=== PATIENT | male | born 1955 | race Caucasian/White ===

== ENCOUNTER 2017-05-29 10:12 | Emergency (ER) | payer OTHER ==
[2017-05-29 11:35] VITALS: BP 164/87
[2017-05-29 12:18] LABS: Eosinophils % (Auto) 6.6 % (0.0-4.3); Hematocrit 33.3 % (35.5-45.6); Hemoglobin 11.4 gm/dl (11.8-15.2); Mean Corpuscular HGB Conc 34 % (32-34); Mean Corpuscular Hemoglobin 28 pg (28-32); Mean Corpuscular Volume 83 fl (84-94); Platelet Count 182 K/mm3 (140-440); Red Blood Count 4.03 M/mm3 (3.65-5.03); Red Cell Distribution Width 14.8 % (13.2-15.2); White Blood Count 6.4 K/mm3 (4.5-11.0)
[2017-05-29 12:26] LABS: BUN/Creatinine Ratio 14.37; Calcium 7.3 mg/dL (8.4-10.2); Chloride 106.7 mmol/L (98-107); Potassium 4.3 mmol/L (3.6-5.0)
--- NOTE | 2017-05-29 13:18 | Emergency Department Report ---
ED General Adult HPI - General Chief complaint: High BP Stated complaint: HIGH BLOOD PRESSURE Time Seen by Provider: 05/29/17 11:49 Source: family Mode of arrival: Ambulatory Limitations: Language Barrier - History of Present Illness Initial comments: The patient was in his doctor's office for a regular checkup. He was found to be hypertensive. His doctor gave him some clonidine 0.15 mg. His blood pressure did not go down into place so he was sent to the emergency department for evaluation. The patient himself has no specific complaints. He denies a history of renal dysfunction. He is diabetic. He states his legs have been swollen for "one year". There has been no increased swelling lately. He does not complain of shortness of breath. -: unknown (unknown length uncontrolled hypertension, leg swelling for 1 year) Consistency: constant Improves with: none Worsens with: none Associated Symptoms: denies other symptoms - Related Data Home Medications Medication Instructions Recorded Confirmed Last Taken Clindamycin 300 mg PO BID 05/07/15 05/07/15 Unknown Meclizine 25 mg PO QID 05/07/15 05/07/15 Unknown Previous Rx's Medication Instructions Recorded Last Taken Type Insulin Aspart Prot/Aspart(Nf) 14 units SUB-Q QPMDIAB #1 vial 05/13/15 Unknown Rx [NovoLOG Mix 70/30 VIAL] Insulin Aspart Prot/Aspart(Nf) 18 units SUB-Q QDDIAB #1 vial 05/13/15 Unknown Rx [NovoLOG Mix 70/30 VIAL] Levofloxacin [Levaquin TAB] 500 mg PO QDAY #14 tablet 05/13/15 Unknown Rx Omeprazole 40 mg PO DAILY #30 tab 05/13/15 Unknown Rx Omeprazole [PriLOSEC] 40 mg PO QDAY #30 cap 05/13/15 Unknown Rx glipiZIDE [Glucotrol] 10 mg PO BIDDIAB #60 tablet 05/13/15 Unknown Rx oxyCODONE /ACETAMINOPHEN [Percocet 1 tab PO Q6H PRN #50 tablet 05/13/15 Unknown Rx 5/325 mg] Hydralazine HCl [Apresoline TAB] 50 mg PO BID #60 tablet 05/29/17 Unknown Rx Allergies Allergy/AdvReac Type Severity Reaction Status Date / Time No Known Allergies Allergy Unverified 05/18/15 10:30 ED Review of Systems ROS: Stated complaint: HIGH BLOOD PRESSURE Other details as noted in HPI Constitutional: denies: chills, fever Eyes: denies: eye pain, eye discharge, vision change ENT: denies: ear pain, throat pain Respiratory: denies: cough, shortness of breath, wheezing Cardiovascular: denies: chest pain, palpitations Endocrine: no symptoms reported Gastrointestinal: denies: abdominal pain, nausea, diarrhea Genitourinary: denies: urgency, dysuria Musculoskeletal: as per HPI, other. denies: back pain, joint swelling, arthralgia Skin: denies: rash, lesions Neurological: denies: headache, weakness, paresthesias Psychiatric: denies: anxiety, depression Hematological/Lymphatic: denies: easy bleeding, easy bruising ED Past Medical Hx - Past Medical History Hx Hypertension: Yes Hx Diabetes: Yes Hx Arthritis: Yes Hx Asthma: No - Surgical History Additional Surgical History: Left Knee Surgery - Social History Smoking Status: Never Smoker Substance Use Type: None - Medications Home Medications: Home Medications Medication Instructions Recorded Confirmed Last Taken Type Clindamycin 300 mg PO BID 05/07/15 05/07/15 Unknown History Meclizine 25 mg PO QID 05/07/15 05/07/15 Unknown History Insulin Aspart Prot/Aspart(Nf) 14 units SUB-Q QPMDIAB #1 vial 05/13/15 Unknown Rx [NovoLOG Mix 70/30 VIAL] Insulin Aspart Prot/Aspart(Nf) 18 units SUB-Q QDDIAB #1 vial 05/13/15 Unknown Rx [NovoLOG Mix 70/30 VIAL] Levofloxacin [Levaquin TAB] 500 mg PO QDAY #14 tablet 05/13/15 Unknown Rx Omeprazole 40 mg PO DAILY #30 tab 05/13/15 Unknown Rx Omeprazole [PriLOSEC] 40 mg PO QDAY #30 cap 05/13/15 Unknown Rx glipiZIDE [Glucotrol] 10 mg PO BIDDIAB #60 tablet 05/13/15 Unknown Rx oxyCODONE /ACETAMINOPHEN [Percocet 1 tab PO Q6H PRN #50 tablet 05/13/15 Unknown Rx 5/325 mg] Hydralazine HCl [Apresoline TAB] 50 mg PO BID #60 tablet 05/29/17 Unknown Rx ED Physical Exam - General Limitations: Language Barrier General appearance: alert, in no apparent distress - Head Head exam: Present: atraumatic, normocephalic - Eye Eye exam: Present: normal appearance - ENT ENT exam: Present: mucous membranes moist - Neck Neck exam: Present: normal inspection - Respiratory Respiratory exam: Present: normal lung sounds bilaterally. Absent: respiratory distress - Cardiovascular Cardiovascular Exam: Present: regular rate, normal rhythm. Absent: systolic murmur, diastolic murmur, rubs, gallop - GI/Abdominal GI/Abdominal exam: Present: soft, normal bowel sounds. Absent: distended, tenderness, guarding, rebound, rigid - Rectal Rectal exam: Present: deferred - Extremities Exam Extremities exam: Present: normal capillary refill, pedal edema, other (2+ pretibial edema). Absent: calf tenderness - Back Exam Back exam: Present: normal inspection - Neurological Exam Neurological exam: Present: alert, oriented X3, CN II-XII intact. Absent: motor sensory deficit - Psychiatric Psychiatric exam: Present: normal affect, normal mood - Skin Skin exam: Present: warm, dry, intact, normal color. Absent: rash ED Course Vital Signs 05/29/17 05/29/17 10:19 11:34 Temperature 97 F L Pulse Rate 78 68 Respiratory 20 16 Rate Blood Pressure 160/97 Blood Pressure 164/87 [Left] O2 Sat by Pulse 100 96 Oximetry - Reevaluation(s) Reevaluation #1: Patient remains asymptomatic here. His blood pressure was in the range of 160/ 90. His regimen will be adjusted. I'm going to add hydralazine and refer him to a sr community manager. 05/29/17 13:18 ED Medical Decision Making - Lab Data Result diagrams: 05/29/17 12:02 05/29/17 12:02 Laboratory Results - last 24 hr 05/29/17 05/29/17 12:02 12:02 WBC 6.4 RBC 4.03 Hgb 11.4 L Hct 33.3 L MCV 83 L MCH 28 MCHC 34 RDW 14.8 Plt Count 182 Lymph % (Auto) 20.0 [place] % (Auto) 6.8 Eos % (Auto) 6.6 H Baso % (Auto) 1.0 Lymph # 1.3 [place] # 0.4 Eos # 0.4 Baso # 0.1 Seg Neutrophils % 65.6 Seg Neutrophils # 4.2 Sodium 141 Potassium 4.3 Chloride 106.7 Carbon Dioxide 27 Anion Gap 12 BUN 23 H Creatinine 1.6 H Estimated GFR 44 BUN/Creatinine Ratio 14.37 Glucose 147 H Calcium 7.3 L Critical care attestation.: If time is entered above; I have spent that time in minutes in the direct care of this critically ill patient, excluding procedure time. ED Disposition Clinical Impression: Renal insufficiency, Uncontrolled hypertension Disposition: TO HOME OR SELFCARE Is pt being admited?: No Does the pt Need Aspirin: No Condition: Stable Instructions: Hypertension (ED), Impaired Kidney Function (ED), Chronic Kidney Disease (ED) Additional Instructions: Low salt diet. Make appointment with kidney specialist. Return any acute change or problem. Additional medication for your blood pressure. This should be monitored daily and with your primary care provider. Prescriptions: Hydralazine HCl [Apresoline TAB] 50 mg PO BID #60 tablet Referrals: LINNEA KINNEY MD [Primary Care Provider] - 3-5 Days [facility] [Provider Group] - 3-5 Days Time of Disposition: 13:20
== END 2017-05-29 14:09 | disposition home or self-care (01) ==
LOC: ED 10:12
DX: I10 Essential (primary) hypertension (principal); N28.9 Disorder of kidney and ureter, unspecified
CPT/HCPCS: 36415; 80048; 85025; 99283

== ENCOUNTER 2018-11-13 05:46 | Day surgery (SDC) | payer OTHER ==
[2018-11-13] MEDS ORDERED: ANCEF/STERILE WATER 2 GM/20 ML 2 GM/20 ML SYRINGE IV NR (06:00)
[2018-11-13] MEDS ORDERED: NACL 0.9% 1000 ML 1,000 ML IV SCH (06:00)
[2018-11-13] MEDS ORDERED: NACL BACTERIOSTATIC INFILTRATI ONE (06:23)
[2018-11-13] MEDS ORDERED: PROTAMINE SULFATE ONE (07:17)
[2018-11-13] MEDS ORDERED: MARCAINE-EPI 0.5%-1:200,000 INFILTRATI ONE ×2 (07:17→08:57)
[2018-11-13] MEDS ORDERED: PAPAVERINE ONE (07:17)
[2018-11-13] MEDS ORDERED: XYLOCAINE 1%/ EPI 1:100,000 INFILTRATI ONE (07:18)
[2018-11-13] MEDS ORDERED: HEPARIN 10,000 UNITS/10 ML ONE (07:18)
[2018-11-13] MEDS ORDERED: THROMBIN (BOVINE) TP ONE ×2 (07:18→09:00)
[2018-11-13] MEDS ORDERED: NITROGLYCERIN SYRINGE 3 ML ONE (07:19)
[2018-11-13] MEDS ORDERED: SODIUM BICARBONATE ONE (07:19)
[2018-11-13] MEDS ORDERED: GELFOAM TP ONE ×2 (07:20→08:59)
[2018-11-13] MEDS ORDERED: VERSED ONE (07:29)
--- NOTE | 2018-11-13 07:32 | Anesthesia Consultation ---
Anesthesia Consult and Med Hx Date of service: 11/13/18 - Airway Anesthetic Teeth Evaluation: Good ROM Head & Neck: Adequate Mental/Hyoid Distance: Adequate Mallampati Class: Class II Intubation Access Assessment: Probably Good - Pulmonary Exam CTA: Yes - Cardiac Exam Cardiac Exam: RRR - Pre-Operative Health Status ASA Pre-Surgery Classification: ASA4 Proposed Anesthetic Plan: General - Pulmonary Hx Smoking: Yes (Former) Hx Asthma: Yes Hx Respiratory Symptoms: No COPD: No Hx Pneumonia: No - Cardiovascular System Hx Hypertension: Yes Hx Peripheral Vascular Disease: Yes - Central Nervous System Hx Psychiatric Problems: No - Gastrointestinal Hx Gastroesophageal Reflux Disease: Yes (takes prilosec) - Endocrine Hx Renal Disease: Yes Hx End Stage Renal Disease: Yes Hx Non-Insulin Dependent Diabetes: Yes - Hematic Hx Anemia: Yes - Other Systems Hx Cancer: No Hx Obesity: Yes
--- NOTE | 2018-11-13 07:32 | Anesthesia Day of Surgery ---
Anesthesia Day of Surgery - Day of Surgery Patient Examined: Yes Patient H&P Reviewed: Yes Patient is NPO: Yes Beta Blockers: No Cardiac Clearance: No Pulmonary Clearance: No Addy's Test: N/A
[2018-11-13] MEDS ORDERED: DILAUDID IV PRN (07:33)
[2018-11-13] MEDS ORDERED: ZOFRAN IV PRN (07:33)
[2018-11-13] MEDS ORDERED: NACL 0.9% 250ML 250 ML ONE (07:41)
[2018-11-13] MEDS ORDERED: XYLOCAINE MPF 2% ONE (07:47)
[2018-11-13] MEDS ORDERED: SUBLIMAZE ONE (07:48)
[2018-11-13] MEDS ORDERED: DIPRIVAN 10 MG/ML IV ONE (07:49)
[2018-11-13] MEDS ORDERED: VERSED IV NR (08:00)
[2018-11-13] MEDS ORDERED: HEPARIN 10,000 UNITS/10 ML IV ONE (08:58)
[2018-11-13] MEDS ORDERED: NITROGLYCERIN SYRINGE UD ONE (08:59)
[2018-11-13] MEDS ORDERED: NACL 0.9% 250ML IV ONE (08:59)
[2018-11-13] MEDS ORDERED: ZOFRAN ONE (09:44)
--- NOTE | 2018-11-13 09:57 | Short Stay Summary ---
Short Stay Documentation Date of service: 11/13/18 - History H&P: obtained from office - Allergies and Medications Current Medications: Allergies diclofenac Allergy (Verified 07/19/17 17:20) Vomiting latex Allergy (Verified 11/10/18 14:06) Unknown Home Medications Medication Instructions Recorded Confirmed Last Taken Type Hydralazine HCl [Apresoline TAB] 50 mg PO BID #60 tablet 05/29/17 11/13/18 10/30/18 Rx Carvedilol [Coreg] 6.25 mg PO DAILY 11/10/18 11/13/18 10/30/18 History Famotidine [Heartburn Prevention] 20 mg PO DAILY 11/10/18 11/13/18 10/30/18 History Fenofibrate [Fenoglide] 120 mg PO QDAY 11/10/18 11/13/18 11/12/18 History Furosemide [Lasix] 80 mg PO DAILY 11/10/18 11/13/18 11/12/18 History Gabapentin [Neurontin] 300 mg PO BID 11/10/18 11/13/18 10/30/18 History amLODIPine [Norvasc] 10 mg PO DAILY 11/10/18 11/13/18 10/30/18 History Active Medications Hydromorphone HCl (Dilaudid) 0.25 mg IV Q10MIN PRN PRN Reason: Pain, Moderate (4-6) Stop: 11/13/18 16:00 Cefazolin Sodium (Ancef/Sterile Water 2 Gm/20 Ml) 2 gm in 20 mls @ 80 mls/hr IV PREOP NR; Protocol Stop: 11/13/18 23:59 Sodium Chloride (Nacl 0.9% 1000 Ml) 1,000 mls @ 42 mls/hr IV DIRECT LIANA Last Admin: 11/13/18 06:35 Dose: 42 mls/hr Documented by: Midazolam HCl (Versed) 2 mg IV PREOP NR Stop: 11/13/18 23:59 Last Admin: 11/13/18 07:32 Dose: 2 mg Documented by: Ondansetron HCl (Zofran) 4 mg IV ONCE PRN PRN Reason: Nausea And Vomiting Stop: 11/13/18 16:00 - Brief post op/procedure progress note Date of procedure: 11/13/18 Pre-op diagnosis: ESRD Post-op diagnosis: same Procedure: Left arm brachial artery to cephalic vein fistula at the elbow Anesthesia: GETA, local (half percent Marcaine with epinephrine) Findings: Excellent thrill no children venous fistula and palpable left radial pulse at the end of the procedure. Surgeon: JHOANA DURÁN Estimated blood loss: minimal Pathology: none Condition: stable - Hospital course Hospital course: Benign - Disposition Condition at discharge: Good Short Stay Discharge Plan Activity: advance as tolerated Diet: advance as tolerated Wound: per your surgeon's advice Follow up with: JHOANA DURÁN MD [Staff Physician] - 14 Days Prescriptions: HYDROcodone/APAP 5-325 [[place] 5/325] 1 each PO Q6HR PRN #30 tablet PRN Reason: Pain
--- NOTE | 2018-11-13 09:59 | Operative Report ---
Operative Report Operative Report: Date of procedure: 11/13/2018 Pre-operative diagnosis: End-stage renal failure Post-operative diagnosis: Same Procedure name(s): Cephalic vein to brachial artery fistula at the level of the elbow in the left upper extremity Surgeon: Santos Doll MD Compensation Advisor: None Anesthesia: Local MAC EBL: Less than 50 mL Operative indication: Patient is a 63 year old man with a history of end-stage renal failure. The patient presents for establishment of long-term hemodialysis access. Findings: Excellent thrill in the arteriovenous fistula at the end of the procedure. Easily palpable radial pulse distal to the anastomosis. Procedure: The patient was placed on the table in the supine position. The left arm was prepped with ChloraPrep solution and draped in the usual sterile fashion. The ultrasound was used to identify the cephalic vein after a tourniquet had been placed in the upper arm using a rubber glove. The vein appeared to be of adequate caliber and no thrombus was noted. The antecubital vein in the forearm was actually of reasonable caliber. However, the left radial artery was small and calcified throughout with near obstruction in several areas. The decision was made to use the cephalic vein above the elbow. Under local anesthesia, an incision was made just below the elbow. Dissection was carried out to identify the cephalic vein. Dissection was also carried out to identify the brachial artery. The vein was dissected from the surrounding tissue to provide enough length to reach the artery. A branch point of the vein was spatulated for the anastomosis. Nitroglycerin was instilled into the vein to dwell while the anastomosis was created. An arteriotomy was made in the artery. Nitroglycerin was instilled into the proximal portion of the artery as well. An end-to-side anastomosis was created using running 7-0 Prolene. A #2 Ruperto catheter was used to make sure all vessels were patent. The anastomosis was completed and flow started into the fistula. There was a strong thrill up the arm. Hemostasis was obtained. The wound was infiltrated with half percent Marcaine and epinephrine. Closure was done with 3-0 Vicryl and 4-0 subcuticular PDS. Dermabond was placed. The patient tolerated the procedure well. There was an easily palpable left radial pulse at the end of the procedure. There was a good thrill in the fistula at the end of the procedure. Sponge, needle, and instrument counts were reported as correct.
[2018-11-13] MEDS ORDERED: NORMODYNE IV NR (10:23)
[2018-11-13] MEDS ORDERED: NORMODYNE IV ONE (10:35)
[2018-11-13 12:06] VITALS: BP 161/80
== END 2018-11-13 11:40 | disposition home or self-care (01) ==
LOC: OR 05:46
PROVIDERS: ATTEND Surgery Vascular Surgery
DX: I12.0 Hypertensive chronic kidney disease with stage 5 chronic kidney disease or end stage renal disease (principal); E11.22 Type 2 diabetes mellitus with diabetic chronic kidney disease; N18.6 End stage renal disease; E11.51 Type 2 diabetes mellitus with diabetic peripheral angiopathy without gangrene; E78.5 Hyperlipidemia, unspecified; K21.9 Gastro-esophageal reflux disease without esophagitis; M19.90 Unspecified osteoarthritis, unspecified site; E66.9 Obesity, unspecified; Z68.30 Body mass index [BMI] 30.0-30.9, adult; Z98.890 Other specified postprocedural states; Z91.040 Latex allergy status; Z79.899 Other long term (current) drug therapy; Z79.01 Long term (current) use of anticoagulants; Z87.891 Personal history of nicotine dependence; Z87.440 Personal history of urinary (tract) infections; Z98.42 Cataract extraction status, left eye; Z98.41 Cataract extraction status, right eye; Z99.2 Dependence on renal dialysis; Z86.2 Personal history of diseases of the blood and blood-forming organs and certain disorders involving the immune mechanism; Z88.8 Allergy status to other drugs, medicaments and biological substances
CPT/HCPCS: 36821; 82803; 82962; A4649; C1757; J0690; J1170; J1644; J2250; J2405; J2704; J3010; J7030; J7050; J2440; J2720